=== PATIENT | male | born 1935 | race Caucasian/White ===

== ENCOUNTER 2018-05-05 05:20 | Day surgery (SDC) | payer OTHER, BC ==
[~2018-05-05] VITALS: Ht 180.3 cm; Wt 83.9 kg
[~2018-05-05 05:20] MED LIST: FLOMAX0.4 MG PO; LO-DOSE ASPIRIN81 M1 PO; MAXZIDE 37.5 M1 EACH PO; TYLENOL PM EX-1 EACH PO; TYLENOL325 M2 PO; XALATAN2.5 ML BOTH EYES
[2018-05-05 05:55] VITALS: BP 166/77
[2018-05-05 11:48] VITALS: BP 130/67
[2018-05-05 16:50] VITALS: BP 135/79
[2018-05-05 20:15] VITALS: BP 136/72
[2018-05-05 23:55] VITALS: BP 123/62
[2018-05-06 06:38] LABS: BASOPHIL (%) 0.5 % (0-1); EOSINOPHIL (%) 2.8 % (0-5); EOSINOPHIL COUNT 0.2 K/uL (0-0.3); HEMATOCRIT 39.8 % (38.0-50.0); IMMATURE GRANULOCYTE (%) 0.4 % (0.0-0.7); LYMPHOCYTE COUNT 1.6 K/uL (1.0-2.8); MCH 33.1 PG (29.0-34.0); MCHC 33.9 G/DL (30.0-36.0); MCV 97.5 FL (86-99); MONOCYTE (%) 10.1 % (3-12); MONOCYTE COUNT 0.9 K/uL (0-0.8); NEUTROPHIL (%) 67.2 % (45-76); NEUTROPHIL COUNT 5.7 K/uL (1.8-6.4); PLATELET COUNT 165 K/uL (156-360); RBC DIS.WIDTH-CV 12.3 % (11.8-14.6); RBC DIS.WIDTH-SD 44.3 % (39-53); RED BLOOD COUNT 4.08 M/uL (4.00-5.50); WHITE BLOOD COUNT 8.5 K/uL (4.1-10.2)
[2018-05-06 06:49] LABS: HEMOGLOBIN 13.5 G/DL (12.5-16.6)
[2018-05-06 07:00] LABS: CHLORIDE 103 MEQ/L (99-109); CREATININE 1.1 MG/DL (0.6-1.3); GFR ESTIMATE (CALCULATED) > 59 mL/min/ (58.99-99999); GLUCOSE 95 mg/dL (70-99); POTASSIUM 3.5 MEQ/L (3.7-5.4); SODIUM 137 MEQ/L (136-147); UREA NITROGEN (BUN) 16 mg/dL (9-23)
[2018-05-06 08:44] VITALS: BP 121/59
[2018-05-06] MEDS ORDERED: NORCO 5/3251 TABLET PO (11:52)
[2018-05-06] MEDS ORDERED: COLACE100 MG PO (11:52)
[2018-05-06 12:07] VITALS: BP 138/75
== END 2018-05-06 14:19 | disposition home or self-care (01) ==
LOC: SDC 05:20 → 2SOUTH 09:14 → 2EAST 09:14 → ENRESERV 09:15 → SDC 11:14 → 2EAST 11:26 → SDC 13:48 → 2EAST 05-06 14:19
PROVIDERS: Student in an Organized Health Care Education/Training Program
DX: K40.90 Unilateral inguinal hernia, without obstruction or gangrene, not specified as recurrent (principal); L82.1 Other seborrheic keratosis; I10 Essential (primary) hypertension; Z86.73 Personal history of transient ischemic attack (TIA), and cerebral infarction without residual deficits; Z87.891 Personal history of nicotine dependence; Z88.2 Allergy status to sulfonamides; Z79.82 Long term (current) use of aspirin
CPT/HCPCS: 80048; 85025; 88305; C1713; C1781; G0378; J0131; J0461; J2250; J2405; J3010; J7120; S0074